=== PATIENT | male | born 1985 | race Caucasian/White ===

== ENCOUNTER → 2020-03-13 07:55 | Outpatient (BNVA) | payer OTHER, SELFPAY | PROVIDERS: Family Provider Family Medicine; PCP Electrodiagnostic Medicine; Visit Provider Psychiatry & Neurology Psychiatry | DX: F90.0 Attention-deficit hyperactivity disorder, predominantly inattentive type (principal) | CPT/HCPCS: 99213 ==

== ENCOUNTER 2022-09-14 18:33 | Inpatient (IN) | payer SELFPAY ==
[2022-09-14 18:37] VITALS: BP 134/102; PULSE 73; RESP 16; O2SAT 99; BMI 28.5
--- NOTE | 2022-09-14 18:43 | ED_ITS ---
HPI - General Adult General: Chief complaint: Psychiatric Symptoms Stated complaint: SI eval Time Seen by Provider: 09/14/22 18:36 History of Present Illness: Patient is a 37-year-old male presenting today with increasing life stressors. Patient notes that his is left him, his f inancial woes are increasing, and he states that the pressure is overwhelming. He did not do anything to harm himself before arrival. He is uncertain if he will do anything to harm himself if discharged. He has no plan today. But notes that he needs to end it all. He is uncertain how he would do this. Review of Systems General: Reports: 10 or more systems reviewed and unremarkable except in HPI and below PFSH ED PFSH: Medical History (Updated 09/14/22 @ 20:37 by Cristian Cedeño DO) ADHD, predominantly inattentive type Physical Exam Const: COMMON NORMALS: no acute distress, patient oriented x3 and alert GENERAL APPEARANCE: cooperative ORIENTATION/CONSCIOUSNESS: Yes awake, Yes oriented to person, Yes oriented to place and Yes oriented to time HENMT: COMMON NORMALS: normocephalic, atraumatic, external ears normal, Normal external nose present and moist oral mucous membranes HEAD & SCALP: normal to inspection, normocephalic and atraumatic NOSE: Normal external nose present GENERAL EAR: hearing grossly impaired EXTERNAL EAR: Yes external ears normal Eye: COMMON NORMALS: Equal, round and reactive pupils present, EOMs intact bilaterally, conjunctivae normal and no scleral icterus GENERAL EYE: a ppearance normal, both eyes and all related structures EYELID: eyelids normal CONJUNCTIVA: Yes conjunctivae normal SCLERA: sclerae normal PUPIL: Yes Equal, round and reactive pupils present Neck/C-Spine: COMMON NORMALS: full ROM, supple and no JVD GENERAL: Yes normal visual inspection Lymph: LYMPHATIC: no lymphadenopathy noted and no lymphedema noted Chest: COMMONS NORMALS: normal inspection of the chest Resp: COMMON NORMALS: normal respiratory effort, No retractions and No use of accessory muscles Cardio: COMMON NORMALS: no JVD, regular rate and regular rhythm RATE: regular rate RHYTHM: regular rhythm GI: COMMON NORMALS: Normal to inspection, nondistended, normoactive bowel shree nds present : COMMON NORMALS: Yes no CVA tenderness BLADDER/KIDNEY EXAM: Yes no CVA tenderness Back/Pelvis: COMMON NORMALS: no CVA tenderness and thoracic and lumbar spine normal to inspection Extremity: COMMON NORMALS: normal to inspection, full ROM and capillary refill normal GENERAL: Yes normal exam except as noted Neuro: COMMON NORMALS: patient oriented x3, CN's II-XII intact bilaterally, moves all extremities, no focal motor deficits, no sensory deficits noted and gait normal SENSORIUM/ORIENTATION: Yes alert, Yes oriented to person, Yes oriented to place and Yes oriented to time Psych: COMMON NORMALS: mental status grossly normal, Normal thought process present, cooperative and normal affect THOUGHT PROCESS: Normal thought process present Skin: COMMON NORMALS: no rashes or lesions noted and no wounds GENERAL SKIN EXAM: no rashes or lesions noted Course Vital Signs: Vital signs: Vital Signs Pulse Rate 73 09/14/22 18:37 Respiratory Rate 16 09/14/22 18:37 Blood Pressure 134/102 09/14/22 18:37 Pulse Oximetry 99 09/14/22 18:37 Oxygen Delivery Me thod 09/14/22 18:37 MDM - General Adult Medical Decision Making 37-year-old male presenting today with possible thoughts of self-harm. I spoke to psychiatry on-call after medical clearance. They recommended admission to the hospital. However our hospital is full. Bed placement will be sought out. Lab Data : 09/14/22 19:51 09/14/22 19:51 Laboratory Results WBC 8.3 10^3/uL (4.0-10.0) 09/14/22 19:51 RBC 4.99 10^6/uL (4.1-5.3) 09/14/22 19:51 Hgb 15.9 g/dL (11.7-16.6) 09/14/22 19:51 Hct 44.0 % (42.0-52.0) 09/14/22 19:51 MCV 88.2 fl (80-94) 09/14/22 19:51 MCH 31.9 pg (28.0-34.0) 09/14/22 19:51 MCHC 36.1 g/dL (30.0-36.0) H 09/14/22 19:51 RDW 11.7 % (12.1-15.1) L 09/14/22 19:51 Plt Count 206 10^3/cmm (130-400) 09/14/22 19:51 MPV 9.8 fL (7.4-10.4) 09/14/22 19:51 Neut % (Auto) 60.8 % 09/14/22 19:51 Lymph % (Auto) 30.1 % 09/14/22 19:51 [place] % (Auto) 7.4 % 09/14/22 19:51 Eos % (Auto) 1.1 % 09/14/22 19:51 Baso % (Auto) 0.4 % 09/14/22 19:51 Neut # (Auto) 5.03 10^3/uL (1.8-7.7) 09/14/22 19:51 Lymph # (Auto) 2.5 10^3/uL (0.8-4.8) 09/14/22 19:51 [place] # (Auto) 0.6 10^3/uL (0.2-0.9) 09/14/22 19:51 Eos # (Auto) 0.1 10^3/uL (0.0-0.8) 09/14/22 19:51 Baso # (Auto) 0.0 10^3/uL (0.0-0.1) 09/14/22 19:51 Nucleated RBC % (auto) 0 % 09/14/22 19:51 Nucleated RBCs # 0.0 /100WBC 09/14/22 19:51 Sodium 136 mmol/L (136-145) 09/14/22 19:51 Potassium 3.6 mmol/L (3.5-5.1) 09/14/22 19:51 Chloride 100 mmol/L (98-107) 09/14/22 19:51 Carbon Dioxide 24 mmol/L (22-29) 09/14/22 19:51 Anion Gap 15.6 (5-19) 09/14/22 19:51 BUN 11 mg/dL (6-20) 09/14/22 19:51 Creatinine 0.7 mg/dL (0.7-1.2) 09/14/22 19:51 GFR Calculation 127.6 mL/min (90-130) 09/14/22 19:51 Glucose 95 mg/dL (65-115) 09/14/22 19:51 Calculated Osmolality 281 mOsm/kg (285-295) L 09/14/22 19:51 Calcium 9.7 mg/dL (8.5-10.5) 09/14/22 19:51 Total Bilirubin 0.6 mg/dL (0.15-1.2) 09/14/22 19:51 AST 36 U/L (0-40) 09/14/22 19:51 ALT 88 U/L (0-41) H 09/14/22 19:51 Alkaline Phosphatase 75 U/L (40-130) 09/14/22 19:51 Total Protein 7.7 g/dL (6.6-8.7) 09/14/22 19:51 Albumin 4.3 g/dL (3.5-5.2) 09/14/22 19:51 Globulin 3.4 g/dL (1.3-4.6) 09/14/22 19:51 Urine Color Yellow (Yellow) 09/14/22 19:51 Urine Appearance Clear (CLEAR) 09/14/22 19:51 Urine pH 6 (5-7) 09/14/22 19:51 Ur Specific [place] 1.015 (1.005-1.030) 09/14/22 19:51 Urine Protein Neg (Negative) 09/14/22 19:51 Urine Glucose (UA) Norm (Normal) 09/14/22 19:51 Urine Ketones Negative (Negative) 09/14/22 19:51 Urine Blood 2+ (Negative) H 09/14/22 19:51 Urine Nitrate Negative (Negative) 09/14/22 19:51 Urine Bilirubin Neg (Negative) 09/14/22 19:51 Urine Urobilinogen Neg mg/dL (Negative) 09/14/22 19:51 Ur Leukocyte Esterase Negative (Negative) 09/14/22 19:51 Urine RBC 0-4 /hpf (0-2) H 09/14/22 19:51 Urine WBC 0-4 /hpf (0-5) H 09/14/22 19:51 Ur Squamous Epith Cells 0-4 /hpf (0-5) H 09/14/22 19:51 Amorphous Sediment Not Reportable 09/14/22 19:51 Urine Bacteria None /hpf (NONE) 09/14/22 19:51 Salicylates < 0.3 mg/dL (3-10) L 09/14/22 19:51 Urine Opiates Screen Negative ng/mL (Negative) 09/14/22 19:51 Acetaminophen < 5.0 ug/mL (10-30) L 09/14/22 19:51 Ur Barbiturates Screen Negative ng/mL (Negative) 09/14/22 19:51 Ur Phencyclidine Scrn Negative ng/mL (Negative) 09/14/22 19:51 Ur Amphetamines Screen Negative ng/mL (Negative) 09/14/22 19:51 U Benzodiazepines Scrn Negative ng/mL (Negative) 09/14/22 19:51 Urine Cocaine Screen Negative ng/mL (Negative) 09/14/22 19:51 U Marijuana (THC) Screen Negative ng/mL (Negative) 09/14/22 19:51 Ethyl Alcohol < 10 mg/dL (0-10) 09/14/22 19:51 Discharge Plan Discharge Patient Disposition: Xfer Psychiatric Hosp Clinical Impression: Suicidal ideation Condition: Stable Prescriptions: No Action dextroamphetamine-amphetamine [Adderall] 20 mg tablet 20 mg PO TID 30 Days Qty: 90 0RF Rx Instructions: administer doses at least 4-6 hours apart dextroamphetamine-amphetamine [Adderall] 20 mg tablet 20 mg PO TID 30 Days Qty: 90 0RF Rx Instructions: administer doses at least 4-6 hours apart dextroamphetamine-amphetamine [Adderall] 20 mg tablet 20 mg PO TID 30 Days Qty: 90 0RF Rx Instructions: administer doses at least 4-6 hours apart Referrals: Cj Pearce MD [Physician] - Karlo Martin DO [Staff Physician] - Coding Level of Care Code ED Painter Chassis for Chg Fwd Exam Comprehensive
--- NOTE | 2022-09-14 19:09 | PC.NURSE ---
pt reports suicidal ideations worsening since yesterday. reports significant life stressor of going through a divorce, reports they have been on and off and it is stressful. also reports financial stress. pt reports he is just sick of it all. pt denies HI or hallucinations.
--- NOTE | 2022-09-14 19:19 | PC.NURSE ---
Report given to LIANNE Larsen to assume care
[2022-09-14 19:59] LABS: Basophils % 0.4 %; Eosinophils # 0.1 10^3/uL (0.0-0.8); Eosinophils % 1.1 %; Hemoglobin 15.9 g/dL (11.7-16.6); Lymphocytes # 2.5 10^3/uL (0.8-4.8); Lymphocytes % 30.1 %; Mean Corpuscular HGB Conc 36.1 g/dL (30.0-36.0); Mean Corpuscular Hemoglobin 31.9 pg (28.0-34.0); Mean Corpuscular Volume 88.2 fl (80-94); Mean Platelet Volume 9.8 fL (7.4-10.4); Monocytes # 0.6 10^3/uL (0.2-0.9); Monocytes % 7.4 %; Neutrophils # 5.03 10^3/uL (1.8-7.7); Neutrophils % 60.8 %; Nucleated Red Blood Cells % 0 %; Platelet Count 206 10^3/cmm (130-400); Red Blood Count 4.99 10^6/uL (4.1-5.3); Red Cell Distribution Width 11.7 % (12.1-15.1); White Blood Count 8.3 10^3/uL (4.0-10.0)
[2022-09-14 20:11] LABS: Add Urine Microscopic? YES; Bilirubin Urine Neg (Negative); Blood Urine 2+ (Negative); Glucose Urine UA Norm (Normal); Ketones Urine Negative (Negative); Leukocyte Esterase Urine Negative (Negative); Nitrate Urine Negative (Negative); Protein Urine Neg (Negative); Specific Gravity, Urine 1.015 (1.005-1.030); Urine Appearance Clear (CLEAR); Urine Color Yellow (Yellow); Urobilinogen Urine Neg (Negative); pH Urine 6 (5-7)
[2022-09-14 20:12] LABS: Add Urine Culture? No; RBC Urine 0-4 /hpf (0-2); Squamous Epithelial Cell Urine 0-4 /hpf (0-5); WBC Urine 0-4 /hpf (0-5)
[2022-09-14 20:13] LABS: Amphetamines Screen Urine Negative (Negative); Barbiturates Screen Urine Negative (Negative); Benzodiazepines Screen Urine Negative (Negative); Cocaine Screen Urine Negative (Negative); Opiate Screen Urine Negative (Negative); PCP Screen Urine Negative (Negative); THC Screen Urine Negative (Negative)
[2022-09-14 20:29] LABS: Alanine Aminotransferase 88 U/L (0-41); Albumin Level 4.3 g/dL (3.5-5.2); Alkaline Phosphatase 75 U/L (40-130); Anion Gap 15.6 (5-19); Aspartate Amino Transferase 36 U/L (0-40); Blood Urea Nitrogen 11 mg/dL (6-20); Calcium 9.7 mg/dL (8.5-10.5); Carbon Dioxide 24 mmol/L (22-29); Chloride 100 mmol/L (98-107); Globulin 3.4 g/dL (1.3-4.6); Glomerular Filtration Rate 127.6 mL/min (90-130); Glucose 95 mg/dL (65-115); Osmolality Calculated 281 mOsm/kg (285-295); Potassium 3.6 mmol/L (3.5-5.1); Salicylate < 0.3 mg/dL (3-10); Sodium 136 mmol/L (136-145); Total Bilirubin 0.6 mg/dL (0.15-1.2); Total Protein 7.7 g/dL (6.6-8.7)
[2022-09-14 20:30] LABS: Acetaminophen < 5.0 ug/mL (10-30); Alcohol Level < 10 mg/dL (0-10)
[2022-09-14 22:40] VITALS: BP 144/98; PULSE 70; RESP 18; O2SAT 97
[2022-09-15 01:00] LABS: SARS Covid-2 Antigen negative (Negative)
[2022-09-15 01:05] VITALS: BP 136/98; PULSE 76; RESP 18; O2SAT 99
[2022-09-15] MEDS: OLANZapine 10 mg ODT 20 MG PO (01:05)
--- NOTE | 2022-09-15 02:47 | PC.NURSE ---
CANDI Dao faxed request for bed to [facility] in [facility] as well as [facility] in [facility]. Sylwia also faxed to all other adult [facility] hospitals available on list, no beds available.
--- NOTE | 2022-09-15 07:13 | PC.NURSE ---
pt sleeping, mother at bedside. pts mother requesting his keys to go take care of his dogs at home. nurse woke up pt, pt okay with his mother taking his keys. keys provided to mother.
--- NOTE | 2022-09-15 09:10 | PC.NURSE ---
notified by staff that pt was becoming agitated in the room. entered room to talk with pt and give update on plan of admission or transfer. pt remains laying in bed on side, facing away from nurse. talking loudly that he was to leave because I have shit to do. ED physician Dr. Will notified and to room to speak with pt regarding 96 hour hold.
[2022-09-15 09:30] VITALS: BP 142/107; PULSE 73; RESP 14; O2SAT 99
[2022-09-15 16:02] VITALS: BP 130/87; PULSE 110; RESP 17; O2SAT 97
--- NOTE | 2022-09-15 17:16 | PC.NURSE ---
report given to LIANNE Ortega
[2022-09-15 17:50] VITALS: BP 130/89; PULSE 101; RESP 16; TEMP 36.7; O2SAT 95
[2022-09-15 22:00] VITALS: BP 113/80; PULSE 91; RESP 16; TEMP 36.8; O2SAT 96
[2022-09-16 06:00] VITALS: BP 113/78; PULSE 91; RESP 18; TEMP 36.4; O2SAT 98
--- NOTE | 2022-09-16 12:57 | W.PM.NPUH&PS ---
Providers/Chief Complaint Admitting Physician: Seymour Velarde MD Chief Complaint: SI eval [facility] NPU History of Present Illness Canelo Yoder is a 37 year old male with a past history of ADHD predominantly inattentive type no previous history of psychiatric hospitalizations who arrived in the emergency room at the request of his mother after he had stated that he was having thoughts of killing himself. He was admitted to the neuropsychiatric unit for definitive treatment and diagnosis. He reports that he had been dealing with the pending divorce with his . He reports that they had and had got back together only to decide that they needed to proceed with the divorce a few days ago. He reports being overwhelmed by this news and states that he has been crying more and feeling more hopeless. He reports he had been more tired and had felt like sleeping all day. He has reported significant financial stressors indicating that he has been unable to pay for bills and has been stressed by the continued financial pressures. He reports that 2 weeks ago his mood had been better but the news of his divorce along with all the other stressors has been difficult for him to handle. He reports that he had previously been treated for ADHD and acknowledged an extended history of distractibility difficulty with falling and maintaining directions frequent boredom while frequently starting projects and not being able to finish them. He had reported a past history of panic attacks with associated chest pain and had also endorsed a history of general anxiety along with difficulties being in public places while feeling observed and watched in those places. He reports that he often avoids crowds and reports having anxiety about talking to strangers. He denies any psychotic symptoms. He denies any manic symptoms in the past or present. He does endorse alcohol use ranging from 2-12 beers for several years. He has no reported history of blackouts or seizure like episodes. Inpatient psychiatric history: None Outpatient psychiatric history he had received treatment in 2019 and 2019 at [facility] outpatient clinic under Dr. 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 He has 1 sibling. He currently lives in [place] and has 3 children ages 1712 and 7. His family including his parents also live in [place]. He has reported no history of sexual physical or emotional trauma during his childhood. He is currently from his . 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 Meds NPU Home Medications Medication Instructions Recorded Confirmed Last Taken Type No Known Home Medications 09/15/22 09/15/22 Unknown History Allergies Allergy/AdvReac Type Severity Reaction Status Date / Time No Known Allergies Allergy Verified 09/15/22 08:10 PFS NPU PFS: Medical History (Updated 09/16/22 @ 13:15 by Seymour Velarde MD) ADHD, predominantly inattentive type Mental Status Exam MSE Comments: He is a casually dressed white male who appeared his stated age. He was alert and oriented to person place and time. His gait appeared normal within normal limits. His hygiene was fair. There was no evidence of any abnormal involuntary motor movements tics or tremors appreciated. His mood was described as down. His affect appeared mood congruent and restricted in range. His thought process was linear logical and goal-directed. His thought content showed no evidence of homicidal ideation. He endorsed some suicidal thoughts with no active plan or intent at this time. His insight was fair his impulse control appeared guarded his judgment at this time was poor. His attention span appeared variable as he did appear distracted during much of the interview. Vitals/I&O/Wt Last Vital Signs Temp 97.5 F L 09/16/22 06:00 Pulse 91 09/16/22 06:00 Resp 18 09/16/22 06:00 BP 113/78 09/16/22 06:00 Pulse Ox 98 09/16/22 06:00 O2 Del Method 09/16/22 06:00 Weight last 48 hrs Weight 92.986 kg Data NPU : 09/14/22 19:51 09/14/22 19:51 A&P Assessment and plan (1) ADHD, predominantly inattentive type: (2) Adjustment disorder with depressed mood: (3) Suicidal ideation: (4) Social anxiety disorder: Plan This is a 37-year-old white male with no previous history of inpatient psychiatric treatment endorsing suicidal ideation after a recent stressor with significant genetic loading for depression and a history of social anxiety. 1.? Will start Zoloft 25mg in am to target anxiety and depression 2.? Encourage individual, group and milieu therapy 3.? Continue q-15 minute check for safety 4.? Recommend sober living treatment at the highest level of care to which the patient is willing to commit. Involuntary Hold Information 96 Hour Hold: 96 Hour Involuntary Admission: No 96 Hour Hold Ending Date: 09/19/22 96 Hour Hold Ending Time: 17:49 Attestations NPU Medical Necessity Statement*: Inpatient hospitalization is medically necessary and the clinically appropriate intervention at this time. We will monitor medications and make changes as indicated. Patient will be in the hospital for over two midnights. The patient's likely length of stay is two to four days. Coding Level of Care Code New Pt Acute Lead Nuclear Medicine Technologist for Radhikag Fwd Patient Type New History Problem Focused Exam Problem Focused Medical Decision Making Straight Forward Diagnoses ADHD, predominantly inattentive type F90.0 Adjustment disorder with depressed mood F43.21 Suicidal ideation R45.851 Social anxiety disorder F40.10
[2022-09-16] MEDS: sertraline 50 mg Tablet 25 MG PO (13:37)
[2022-09-16 14:00] VITALS: BP 144/90; PULSE 74; RESP 16; TEMP 36.6
[2022-09-16 22:00] VITALS: BP 132/85; PULSE 108; RESP 18; TEMP 37; O2SAT 96
[2022-09-17] MEDS: sertraline 50 mg Tablet 25 MG PO (09:02)
--- NOTE | 2022-09-17 13:02 | P.NPUDS_ITS ---
Diagnoses at Discharge Discharge Diagnosis (1) ADHD, predominantly inattentive type: Status: Acute (2) Adjustment disorder with depressed mood: Status: Acute (3) Suicidal ideation: Status: Resolved (4) Social anxiety disorder: Status: Acute Reason for Visit Reason for Visit: SI grayal Brief History: History of Present Illness Canelo Yoder is a 37 year old male with a past history of ADHD predominantly inattentive type no previous history of psychiatric hospitalizations who arrived in the emergency room at the request of? his mother after he had stated that he was having thoughts of killing himself.? He was admitted to the neuropsychiatric unit for definitive treatment and diagnosis.? He reports that he had been dealing with the pending divorce with his .? He reports that they had and had got back together only to decide that they needed to proceed with the divorce a few days ago.? He reports being overwhelmed by this news and states that he has been crying more and feeling more hopeless.? He reports he had been more tired and had felt like sleeping all day.? He has reported significant financial stressors indicating that he has been unable to pay for bills and has been stressed by the continued financial pressures.? He reports that 2 weeks ago his mood had been better but the news of his divorce along with all the other stressors has been difficult for him to handle.? He reports that he had previously been treated for ADHD and acknowledged an extended history of distractibility difficulty with falling and maintaining directions frequent boredom while frequently starting projects and not being able to finish them.? He had reported a past history of panic attacks with associated chest pain and had also endorsed a history of general anxiety along with difficulties being in public places while feeling observed and watched in those places.? He reports that he often avoids crowds and reports having anxiety about talking to strangers.? He denies any psychotic symptoms.? He denies any manic symptoms in the past or present.? He does endorse alcohol use ranging from 2-12 beers for several years.? He has no reported history of blackouts or seizure like episodes. Inpatient psychiatric history: None Outpatient psychiatric history he had received treatment in 2019 and 2019 at [facility] outpatient clinic under Dr. 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 He has 1 sibling.? He currently lives in [facility] and has 3 children ages 1712 and 7.? His family including his parents also live in [place] [facility].? He has reported no history of sexual physical or emotional trauma during his childhood.? He is currently from his .? 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 Hospital Course Hospital Course Discharge Summary: During the hospitalization, patient had routine laboratory studies which were within normal limits except for few outliers.? Additionally there was a general medical evaluation which was also within normal limits and revealed no new acute processes. At the time of discharge, lethality was denied and psychosis was resolving.? Mood and anxiety were well managed.? Patient endorsed a plan to avoid all drugs of abuse and follow-up with the aftercare recommendations of the treatment team.? Patient was evaluated and deemed to be absent credible lethality, and had achieved the maximum benefit from an inpatient hospitalization, so was discharged. Involuntary Hold Information 96 Hour Hold: 96 Hour Involuntary Admission: No 96 Hour Hold Ending Date: 09/19/22 96 Hour Hold Ending Time: 17:49 Mental Status Exam MSE Comments: He is a casually dressed white male who appeared his stated age. He was alert and oriented to person place and time. His gait appeared normal within normal limits. His hygiene was fair. There was no evidence of any abnormal involuntary motor movements tics or tremors appreciated. His mood was described as better. His affect appeared brighter on discharge. His thought process was linear logical and goal-directed. His thought content showed no evidence of homicidal ideation. He endorsed some suicidal thoughts with no active plan or intent at this time. His insight was fair his impulse control appeared guarded his judgment at this time was fair. His attention span was fair. Discharge Data Studies Completed and Pending: Laboratory Results WBC 8.3 10^3/uL (4.0- 10.0) 09/14/22 19:51 RBC 4.99 10^6/uL (4.1 -5.3) 09/14/22 19:51 Hgb 15.9 g/dL (11.7-1 6.6) 09/14/22 19:51 Hct 44.0 % (42.0-52.0 ) 09/14/22 19:51 MCV 88.2 fl (80-94) 09/14/22 19:51 MCH 31.9 pg (28.0-34. 0) 09/14/22 19:51 MCHC 36.1 g/dL (30.0-3 6.0) H 09/14/22 19:51 RDW 11.7 % (12.1-15.1 ) L 09/14/22 19:51 Plt Count 206 10^3/cmm (130 -400) 09/14/22 19:51 MPV 9.8 fL (7.4-10.4) 09/14/22 19:51 Neut % (Auto) 60.8 % 09/14/22 19:51 Lymph % (Auto) 30.1 % 09/14/22 19:51 Towner % (Auto) 7.4 % 09/14/22 19:51 Eos % (Auto) 1.1 % 09/14/22 19:51 Baso % (Auto) 0.4 % 09/14/22 19:51 Neut # (Auto) 5.03 10^3/uL (1.8 -7.7) 09/14/22 19:51 Lymph # (Auto) 2.5 10^3/uL (0.8- 4.8) 09/14/22 19:51 Towner # (Auto) 0.6 10^3/uL (0.2- 0.9) 09/14/22 19:51 Eos # (Auto) 0.1 10^3/uL (0.0- 0.8) 09/14/22 19:51 Baso # (Auto) 0.0 10^3/uL (0.0- 0.1) 09/14/22 19:51 Nucleated RBC % (a uto) 0 % 09/14/22 19:51 Nucleated RBCs # 0.0 /100WBC 09/14/22 19:51 Sodium 136 mmol/L (136-1 45) 09/14/22 19:51 Potassium 3.6 mmol/L (3.5-5 .1) 09/14/22 19:51 Chloride 100 mmol/L (98-10 7) 09/14/22 19:51 Carbon Dioxide 24 mmol/L (22-29) 09/14/22 19:51 Anion Gap 15.6 (5-19) 09/14/22 19:51 BUN 11 mg/dL (6-20) 09/14/22 19:51 Creatinine 0.7 mg/dL (0.7-1. 2) 09/14/22 19:51 GFR Calculation 127.6 mL/min (90- 130) 09/14/22 19:51 Glucose 95 mg/dL (65-115) 09/14/22 19:51 Calculated Osmolal ity 281 mOsm/kg (285- 295) L 09/14/22 19:51 Calcium 9.7 mg/dL (8.5-10 .5) 09/14/22 19:51 Total Bilirubin 0.6 mg/dL (0.15-1 .2) 09/14/22 19:51 AST 36 U/L (0-40) 09/14/22 19:51 ALT 88 U/L (0-41) H 09/14/22 19:51 Alkaline Phosphata se 75 U/L (40-130) 09/14/22 19:51 Total Protein 7.7 g/dL (6.6-8.7 ) 09/14/22 19:51 Albumin 4.3 g/dL (3.5-5.2 ) 09/14/22 19:51 Globulin 3.4 g/dL (1.3-4.6 ) 09/14/22 19:51 Urine Color Yellow (Yellow) 09/14/22 19:51 Urine Appearance Clear (CLEAR) 09/14/22 19:51 Urine pH 6 (5-7) 09/14/22 19:51 Ur Specific Gravit y 1.015 (1.005-1.0 30) 09/14/22 19:51 Urine Protein Neg (Negative) 09/14/22 19:51 Urine Glucose (UA) Norm (Normal) 09/14/22 19:51 Urine Ketones Negative (Negati ve) 09/14/22 19:51 Urine Blood 2+ (Negative) H 09/14/22 19:51 Urine Nitrate Negative (Negati ve) 09/14/22 19:51 Urine Bilirubin Neg (Negative) 09/14/22 19:51 Urine Urobilinogen Neg mg/dL (Negati ve) 09/14/22 19:51 Ur Leukocyte Isabell ase Negative (Negati ve) 09/14/22 19:51 Urine RBC 0-4 /hpf (0-2) H 09/14/22 19:51 Urine WBC 0-4 /hpf (0-5) H 09/14/22 19:51 Ur Squamous Epith Cells 0-4 /hpf (0-5) H 09/14/22 19:51 Amorphous Sediment Not Reportable 09/14/22 19:51 Urine Bacteria None /hpf (NONE) 09/14/22 19:51 Salicylates < 0.3 mg/dL (3-10 ) L 09/14/22 19:51 Urine Opiates Scre en Negative ng/mL (N egative) 09/14/22 19:51 Acetaminophen < 5.0 ug/mL (10-3 0) L 09/14/22 19:51 Ur Barbiturates Sc reen Negative ng/mL (N egative) 09/14/22 19:51 Ur Phencyclidine S crn Negative ng/mL (N egative) 09/14/22 19:51 Ur Amphetamines Sc reen Negative ng/mL (N egative) 09/14/22 19:51 U Benzodiazepines Scrn Negative ng/mL (N egative) 09/14/22 19:51 Urine Cocaine Scre en Negative ng/mL (N egative) 09/14/22 19:51 U Marijuana (THC) Screen Negative ng/mL (N egative) 09/14/22 19:51 Ethyl Alcohol < 10 mg/dL (0-10) 09/14/22 19:51 SARS-CoV-2 Ag (Rap id) negative (Negati ve) 09/15/22 00:23 Vitals: Last Vital Signs Temp 98.6 F 09/16/22 22:00 Pulse 108 H 09/16/22 22:00 Resp 18 09/16/22 22:00 BP 132/85 09/16/22 22:00 Pulse Ox 96 09/16/22 22:00 O2 Del Method 09/16/22 22:00 Discharge Plan Discharge Patient Disposition: Home Condition: Stable Prescriptions: New sertraline 50 mg Tablet 50 mg PO DAILY 30 Days Qty: 30 1RF Discharge Orders: Discharge Order (Routine); Ordered 09/17/22 Ordered By: Seymour Velarde Referrals: [facility] [Outside] - 1-3 days (Walk in on Thursday through Thursday from 7:30 am to 3:00 pm. ) Cj Pearce MD [Physician] - 09/23/22 2:00 pm (Follow up.) Karlo Martin DO [Staff Physician] - Discharge Diet: Usual diet Discharge Activity: Resume usual activity Patient Instructions: Sertraline (By mouth) (Zoloft), Depression (DC), Anxiety (DC), Suicide Prevention (DC), Opioid Safety Discharge Attestations NPU Time Spent in Discharge Care*: less than 30 min Specific Discharge Activities: Specific discharge activities: educating patient, discussing with child support case officer/social workers/dc planners, documenting/other paperwork and evaluating patient/reviewing data Coding Level of Care Code Established Pt Acute Chg FW DC note Patient Type Established History Problem Focused Exam Problem Focused Medical Decision Making Straight Forward Diagnoses ADHD, predominantly inattentive type F90.0 Adjustment disorder with depressed mood F43.21 Suicidal ideation R45.851 Social anxiety disorder F40.10
[2022-09-17 13:08] VITALS: BP 132/85; PULSE 108; RESP 18; TEMP 37; O2SAT 96
[2022-09-17 14:00] VITALS: BP 132/85; PULSE 108; RESP 18; TEMP 37; O2SAT 96
== END 2022-09-17 14:00 | disposition home or self-care (01) | DRG 881 ==
LOC: ER 09-15 07:17 → NP 09-15 17:21
PROVIDERS: Emergency Medicine; Admitting Provider Psychiatry & Neurology Psychiatry; Emergency Provider Family Medicine; Visit Provider Psychiatry & Neurology Psychiatry
DX: F43.21 Adjustment disorder with depressed mood (principal); R45.851 Suicidal ideations; F90.0 Attention-deficit hyperactivity disorder, predominantly inattentive type; Z63.0 Problems in relationship with spouse or partner; Z81.8 Family history of other mental and behavioral disorders; F40.10 Social phobia, unspecified
CPT/HCPCS: 80053; 80306; 80307; 81001; 85025; 87426; 97165; 99285